=== PATIENT | male | born 1945 | race Caucasian/White ===

== ENCOUNTER 2020-04-17 08:15 | Day surgery (SDC) | payer MEDICARE, BC ==
[2020-04-13 13:42] LABS: BASOPHILS % (AUTO) 0.4 % (0-1); EOSINOPHILS # (AUTO) 0.2 X10'3 (0-0.9); EOSINOPHILS % (AUTO) 2.6 % (0-6); LYMPHOCYTES # (AUTO) 1.7 X10'3 (1.1-4.8); MEAN CORPUSCULAR HEMOGLOBIN 32.2 PG (27.0-31.0); MEAN CORPUSCULAR VOLUME 94.7 FL (78-98); MEAN PLATELET VOLUME 7.2 FL (7.4-10.4); MONOCYTES # (AUTO) 0.6 X10'3 (0-0.9); MONOCYTES % (AUTO) 7.9 % (2-12); NEUTROPHILS % (AUTO) 66.1 % (42-75); PRE OP HEMOGLOBIN 15.6 g/dL (14.0-17.9); PRE OP PLATELET COUNT 194 X10'3 (140-440); RED BLOOD COUNT 4.86 X10'6 (4.70-6.10); RED CELL DISTRIBUTION WIDTH 13.3 % (11.5-14.5)
[2020-04-13 13:55] LABS: ALBUMIN 4.3 G/DL (3.4-5.0); ALBUMIN/GLOBULIN RATIO 1.3 (1.1-1.5); ALKALINE PHOSPHATASE 71 IU/L (46-116); BLOOD UREA NITROGEN 19 MG/DL (7-18); BUN/CREATININE RATIO 18.8 (5.4-32.0); CALCIUM 9.5 MG/DL (8.5-10.1); CHLORIDE 105 MMOL/L (99-107); CREATININE 1.01 MG/DL (0.60-1.10); PRE OP ALT 27 U/L (30-65); PRE OP ANION GAP 6 (8-16); PRE OP AST 19 U/L (10-37); PRE OP BILIRUB, TOTAL 0.4 MG/DL (0.0-1.0); PRE OP GLUCOSE 85 MG/DL (70-104); PRE OP POTASSIUM 4.1 MMOL/L (3.4-5.1); PRE OP SODIUM 142 MMOL/L (135-145); TOTAL CARBON DIOXIDE 31.3 MMOL/L (24-32); TOTAL PROTEIN 7.7 G/DL (6.4-8.2); eGFR 72 ML/MIN
[2020-04-17] VITALS (9 sets, daily range): BP systolic 101–130; BP diastolic 68–78
[~2020-04-17] VITALS: Ht 175.3 cm; Wt 78.9 kg
[~2020-04-17 08:15] MED LIST: ACET-2119 PO; BUPIVAcaine/PF 2.5mg/ml (0.25%) 10ml vial ONE; MULT-1085 PO; ceFAZolin 2gm in dextrose, iso 50 ML IV ONE; famotidine 20mg tablet PO ONE; ringers solution, lacted 1,000 ML IV SCH
[2020-04-17] MEDS ORDERED: fentaNYL/PF 50MCG/1 ML 2ML syringe ONE (11:01)
[2020-04-17] MEDS ORDERED: midazolam 2 mg/2 ml injection ONE (11:02)
[2020-04-17] MEDS ORDERED: sevoflurane 250ml liquid IH ONE (11:16)
[2020-04-17] MEDS ORDERED: phenylephrine 10mg/ml inj. ONE (12:56)
[2020-04-17] MEDS ORDERED: ondansetron/PF 4mg/2ml inj ONE (12:56)
[2020-04-17] MEDS ORDERED: dexamethasone sod phosphate 4mg/ml inj. ONE (12:56)
[2020-04-17] MEDS ORDERED: propofol inj 20 ML IV ONE (12:56)
[2020-04-17] MEDS ORDERED: ROPIVAcaine 0.5% (5mg/ml) 30ml vial ONE (12:56)
--- NOTE | 2020-04-17 13:19 | NUR ---
Pt BROUGHT TO RECOVERY, VSS, LR RUNNING, RIGHT ARM-SPLINT, GOOD CAP REFILL, DENIES PAIN, MOVEMENT AND SENSATION PRESENT TO ALL FINGERS, ON PILLOW FOR ELEVATION, MICHAEL ESCOTO ON FOR LOW TEMP, 100% O2 ON 10LTRS, ALERT/ORIENTED, NICANOR-CDI CURRENTLY. Addendum: 04/17/20 at 1334 by Juventino Zurita RN, RN Amended: Links added.
--- NOTE | 2020-04-17 14:35 | NUR ---
PATIENT HAS VERBALIZED UNDERSTANDING, OPPORTUNITY TO ASK QUESTIONS GIVEN AND PATIENT COMFORTABLE WITH DC. IV TAKEN OUT WITHOUT COMPLICATION. DRESSSING CDI UPON D/C. PATIENT HAS MET ALL DC CRITERIA FOR DC HOME. I HAVE REVIEWED D/C INSTRUCTIONS WITH PT. TAKEN OUT VIA WHEELCHAIR W BELONGINGS. FAMILY GAVE PATIENT TRANSPORT HOME. Addendum: 04/17/20 at 1437 by Juventino Zurita RN, RN Amended: Links added.
== END 2020-04-17 14:05 | disposition home or self-care (01) ==
LOC: PAS 08:15 → EDSEX 11:00 → PAS 14:05
PROVIDERS: ATTEND Orthopaedic Surgery Hand Surgery
DX: S54.01XA Injury of ulnar nerve at forearm level, right arm, initial encounter (principal); M67.843 Other specified disorders of tendon, right hand; Z95.0 Presence of cardiac pacemaker; Z72.89 Other problems related to lifestyle; Z79.899 Other long term (current) drug therapy; Z20.828 Contact with and (suspected) exposure to other viral communicable diseases; X58.XXXA Exposure to other specified factors, initial encounter; Y93.89 Activity, other specified; Y92.89 Other specified places as the place of occurrence of the external cause; Y99.8 Other external cause status
CPT/HCPCS: 64417; 64905; 64910; 76942; 80053; 82948; 85025; 87635; 93005; C1763; J1100; J2250; J2370; J2405; J2704; J3010; J3490; J7120; A4215; A4618; A6449; J2795